=== PATIENT | male | born 1990 | race Two or more races ===

== ENCOUNTER 2016-07-09 18:05 | Emergency (ER) | payer OTHER ==
[~2016-07-09] VITALS: Ht 165.1 cm; Wt 68.0 kg
[2016-07-09] MEDS ORDERED: Norco 5mg/325mg tab ORAL ONE (20:15)
[2016-07-09] MEDS ORDERED: Lidocaine 1% MPF 10mg/ml 5ml ONE (20:31)
[2016-07-09] MEDS ORDERED: Lidocaine 1% 10mg/ml/Epi 0.005mg/ml 30ml vial INJ ONE (21:00)
--- NOTE | 2016-07-09 22:04 | Emergency Room Report ---
History of Present Illness General Chief Complaint: Laceration Source: Patient Present Illness HPI 25-year-old male presents emergency department complaining of pain, bleeding, partially sutured laceration of the distal Left middle finger x 1 day. Patient states he was at work when he accidentally cut his middle and ring finger on a skill saw. Patient states he was seen at a clinic where several stitches were temporarily placed and he was told to be evaluated at an emergency department. he reports 9 out of 10 pain in the distal aspect of the left middle and ring finger exacerbated with movement and touch. He states bleeding has decreased. Pt. states he is UTD with tetanus, as he received his tetanus last year. Pt reports limited movement in the left ring finger. Denies numbness tingling or loss of sensation or gross motor movements of the extremities, incontinence of bowel or bladder. Denies CP, Palpitations, LOC, AMS , dizziness, Changes in Vision, or a sudden severe headache. Allergies: Coded Allergies: No Known Allergies (Unverified , 07/09/16) Patient History Past Medical History: see triage record Past Surgical History: none Pertinent Family History: none Immunizations: UTD Reviewed Nursing Documentation: PMH: Agreed, PSxH: Agreed Nursing Documentation-PMH Past Medical History: No Stated History Review of Systems All Other Systems: negative except mentioned in HPI Physical Exam Vital Signs Date Time Temp Pulse Resp B/P Pulse Ox O2 Delivery O2 Flow Rate FiO2 07/09/16 18:53 98.2 91 16 148/72 99 Room Air Sp02 EP Interpretation: reviewed, normal General Appearance: no apparent distress, alert, GCS 15, non-toxic Head: normocephalic, atraumatic Eyes: bilateral eye PERRL, bilateral eye normal inspection ENT: hearing grossly normal, normal pharynx, no angioedema, normal voice Neck: full range of motion, supple/symm/no masses Respiratory: lungs clear, normal breath sounds, speaking full sentences Cardiovascular #1: regular rate, rhythm, no edema Cardiovascular #2: 2+ radial (R), 2+ radial (L) Gastrointestinal: no guarding Musculoskeletal: back normal, gait/station normal, normal range of motion, other - Pt. has limited mobility of the distal left 4th digit., tender - TTP to the distal left 3rd and 4th digits, each with obvious lacerations Neurologic: alert, oriented x3, responsive, motor strength/tone normal, sensory intact, speech normal Psychiatric: judgement/insight normal, memory normal, mood/affect normal, no suicidal/homicidal ideation Skin: normal color, no rash, warm/dry, well hydrated, laceration - One complex laceration which involves the left 4th digit at the DIP joint suspicious for open fracture, and one 1cm laceration to the lateral aspect of the left 3rd digit with partial involvement of the nail and nail bed. Lymphatic: no adenopathy Medical Decision Making PA Attestation Dr. Jaeger is my supervising Physician whom patient management has been discussed with. Diagnostic Impression: Primary Impression: Partial traumatic transphalangeal amputation of unspecified finger, initial encounter Additional Impressions: Nail bed injury Open fracture of phalanx of left hand Qualified Codes: S62.609B - Fracture of unspecified phalanx of unspecified finger, initial encounter for open fracture ER Course Pt. presents to the ED c/o laceration to the left middle and ring finger x 1 day Ddx considered but are not limited to laceration, tendon injury, cellulitis, amputation Vital signs: are WNL, pt. is afebrile H&PE are most consistent with: One complex laceration which involves the left 4th digit at the DIP joint suspicious for open fracture, and one 1cm laceration to the lateral aspect of the left 3rd digit with partial involvement of the nail and nail bed. ORDERS: -X-Ray Left hand 3 views: positive for significant soft tissue injury with comminuted fracture involving the DIP of the 4th finger per official radiology report (Dr. Mcdonald). ED INTERVENTIONS: -5mg Pelham PO -1g Rocephin IM - The wound was copiously irrigated with normal saline, and explored for foreign body for which no FB was found. --- PLASTICS/HAND SPECIALIST CONSULT: Dr. BRASHER Wound closures and nail bed repair was performed by Dr. Brasher - please refer to his procedure notes - Bacitracin was applied. -Finger Splint applied to the Left ring finger by Dr. Brasher . Pt. remains neurovascularly intact. DISCHARGE: At this time pt. is stable for d/c to home. Will provide printed patient care instructions, and any necessary prescriptions. Care plan and follow up instructions have been discussed with the patient prior to discharge. Last Vital Signs Date Time Temp Pulse Resp B/P Pulse Ox O2 Delivery O2 Flow Rate FiO2 2/20/17 21:16 98.3 07/09/16 18:53 91 16 148/72 99 Room Air Disposition: HOME, SELF-CARE Condition: Improved Scripts Cephalexin* (KEFLEX*) 500 Mg Capsule 500 MG ORAL EVERY 12 HOURS for 7 Days, #14 CAP 0 Refills Prov: Beryl Costa 07/09/16 Hydrocodone Bit/Acetaminophen 5-325* (NORCO 5-325 TABLET*) 1 Each Tablet 1 TAB ORAL Q6HR Y for For Pain, #10 TAB Prov: Beryl Costa 07/09/16 Referrals: NOT CHOSEN IPA/MD,REFERRING (PCP) Patient Instructions: Laceration Care, Adult Additional Instructions: Take medications as directed. Follow up with PCP in 3-5 days Follow up with Dr. Brasher , Orthopedic Hand Specialist Return sooner to ED if new symptoms occur, or current symptoms become worse. Do not drink alcohol, drive, or operate heavy machinery while taking Pelham as this may cause drowsiness. - Please note that this Emergency Department Report was dictated using [employer] vehicle officer technology software, occasionally this can lead to erroneous entry secondary to interpretation by the dictation equipment. Beryl Costa Jul 09, 2016 22:04
[2016-07-09] MEDS ORDERED: NORCO 5-325 TA1 EAC1 ORAL (22:07)
[2016-07-09] MEDS ORDERED: CEPHALEXIN500 MG ORAL (22:07)
[2016-07-09] MEDS ORDERED: Bacitracin Oint UD TOPIC ONE (22:15)
[2016-07-09 22:36] VITALS: BP 124/71
--- NOTE | 2016-07-10 09:49 | Diagnostic Imaging Report ---
Indication: PAIN Technique: 3 views left hand Comparison: none Findings: There is a severely comminuted fracture of the fourth distal phalanx. This involves the articular surface There is evidence of significant associated soft tissue disruption. No other acute fracture. No dislocations. Joint spaces are preserved. Impression: Positive for comminuted intra-articular fourth distal phalangeal fracture. Electronic medical record indicates this was recognized by the ER physician
--- NOTE | 2016-07-18 01:58 | Operative Note - Dictated ---
DATE OF OPERATION: 07/09/2016 PREOPERATIVE DIAGNOSIS: Open fractures of the left ring finger and subungual hematoma and shattered left nail plate and open wound of the distal finger, subungual hematoma of the left middle finger with nail bed laceration. PROCEDURES: 1. Left middle and ring finger exploration. 2. Evacuation of subungual hematoma. 3. Close reduction of the ring finger comminuted fractures and distal phalangeal fractures. 4. Removal of the nail plate of the left middle and ring finger. 5. Repair of nail bed on the left ring and middle finger. 6. Repair of soft tissue laceration of the left ring finger. SURGEON: Saul Brasher M.D. ANESTHESIA: A 1% lidocaine with epinephrine in a local digital block of the left middle and ring fingers. COMPLICATIONS: None. FINDINGS DURING THIS PROCEDURE: Comminuted and displaced ring finger distal phalangeal fractures, subungual hematoma in the left middle and ring finger, transverse laceration of the nail bed of the left middle and ring finger, shattered nail plate of the left ring and middle finger, and complex lacerations of the pulp and the soft tissue of the left ring finger. OPERATIVE PROCEDURE NOTE IN DETAIL: The patient was brought into the OR, was prepped and draped in the usual sterile fashion after digital block was administered. The nail plate of both the middle and ring fingers were removed and underlying subungual hematoma was evacuated. After removing the nail plate in both fingers, the comminuted fractures of the left ring finger distal phalanx was reduced and pushed back into place and the distal end of the left ring finger was secured in place using 3-0 nylon interrupted sutures to close the soft tissue laceration after fracture reduction. Approximately, 3 cm of laceration was repaired. Next, I used 4-0 chromic gut to close and repair the finger nail fractures. This was performed in an interrupted and continuous fashion because of the type of laceration of the nail bed, and did the same thing to a third laceration of the left middle finger nail bed as well. Once both were repaired, antibiotic ointment was used to cover the suture line as well as the nail bed and then a finger splint was applied to maintain the reduction and protect the left ring finger fracture reduction. Open dressing was placed over both fingers and the patient will be discharged home on oral antibiotics, pain medications, and will follow up with me in my office for wound check. Saul Brasher M.D. DR: ANDREA JOB#: [id number] CC:
--- NOTE | 2016-07-18 16:18 | Consultation ---
DATE OF CONSULTATION: 07/17/2016 REASON FOR CONSULTATION: Open fractures of the left ring and little finger. HISTORY OF PRESENT ILLNESS: The patient is a 25-year-old male, who presented to the emergency department complaining of pain and bleeding of the left middle and ring finger. He was at work when he actually cut partially his left middle and ring finger when using a skill saw. He was seen at urgent care where they put stitches and then referred him to our emergency room for further evaluation and management. PAST MEDICAL HISTORY: None. PAST SURGICAL HISTORY: None. ALLERGIES: No known drug allergies. CURRENT MEDICATIONS: None. SOCIAL HISTORY: He did received his tetanus last year. REVIEW OF SYSTEMS: Pain, swelling, discomfort, bleeding in the left middle and ring finger. All other review of systems were reviewed and negative as mentioned in the history of present illness. PHYSICAL EXAMINATION: GENERAL: The patient is comfortable, resting on the stretcher, hemodynamically stable and afebrile. VITAL SIGNS: Temperature of 98.2 degrees, pulse of 91, respiratory rate of 16, blood pressure 148/72, and pulse ox of 99 on room air. HEENT: Head is normocephalic and atraumatic. No bony step-offs. No scalp laceration. Pupils are equal, round, and reactive to light. Extraocular motion intact and symmetrical bilaterally. External nose, ears, mouth, and oral cavity all appeared normal. NECK: Supple. No jugular venous distention. No palpable masses. No bruits. Trachea is midline. CHEST: Clear to auscultation. No wheezes, rales, or crackles. CARDIOVASCULAR: Normal sinus rhythm. Normal S1 and S2. No murmurs, rubs, or gallops. ABDOMEN: Soft, nontender, and nondistended. No guarding, rebound, or rigidity. EXTREMITIES: Full range of motion. No gross deformities except that the left middle and ring finger. The Ring finger has a subungual hematoma and partially shattered current nail plates. Patient also had a lot of pain in the left middle finger and is covered with dry blood. The nail bed is also lacerated with obvious subungal hematoma present. ASSESSMENT AND PLAN: The patient is a 25-year-old male, who had a skill saw injury to the left middle and ring finger that requires exploration of open reduction of the distal interphalangeal fractures and repair of the nail bed in the left middle and ring finger, evacuation of subungual hematoma, removal of the nail plates, and repair of soft tissue injuries. Risks, benefits and alternatives were discussed with the patient. He understood and agrees to proceed. He was also notified that the finger may not look normal once this is healed. He agrees to proceed. Arrangements will be made. Saul Brasher M.D. DR: ENZO JOB#: [id number] CC: STEVEN
== END 2016-07-09 22:39 | disposition home or self-care (01) ==
LOC: EMR 19:29
DX: S68.625A Partial traumatic transphalangeal amputation of left ring finger, initial encounter (principal); S62.635B Displaced fracture of distal phalanx of left ring finger, initial encounter for open fracture; S61.313A Laceration without foreign body of left middle finger with damage to nail, initial encounter; W27.0XXA Contact with workbench tool, initial encounter; Y92.69 Other specified industrial and construction area as the place of occurrence of the external cause; Y99.0 Civilian activity done for income or pay
CPT/HCPCS: 10140; 13132; 26755; 29280; 73130; 96372; 99284; J0696